=== PATIENT | female | born 1980 | race Caucasian/White ===

== ENCOUNTER 2017-11-09 11:29 | Outpatient (CLI) | payer MEDICAID | END 2017-11-09 13:45 | disposition home or self-care (01) | LOC: OBT 11:29 → L-D 11:29 → OBT 13:45 | DX: O46.8X3 Other antepartum hemorrhage, third trimester (principal); Z3A.38 38 weeks gestation of pregnancy | CPT/HCPCS: 76818 ==

== ENCOUNTER 2017-11-11 04:22 | Inpatient (IN) | payer MEDICAID ==
[2017-11-11] MEDS ORDERED: OXYTOCIN 30 UNITS/LR 500 ML IV (11:30)
[2017-11-11] MEDS ORDERED: CARBOPROST 250 MCG INJ IM (11:30)
[2017-11-11] MEDS: LACTATED RINGER'S 1,000 ML IV ×3 (11:47→21:06)
[2017-11-11 12:08] LABS: ADD MAN DIFF? NO
[2017-11-11 12:11] LABS: WHITE BLOOD COUNT 10.8 10^3/ul (4.8-10.8)
[2017-11-11 12:11] LABS: BASOPHILS % 0.3 % (0.0-2.0); EOSINOPHILS # 0.2 10^3/ul (0.0-0.5); EOSINOPHILS % 1.9 % (0.0-7.0); HEMATOCRIT 32.1 % (37.0-47.0); HEMOGLOBIN 10.7 g/dl (12.0-16.0); LYMPHOCYTES # 1.6 10^3/ul (0.8-2.9); LYMPHOCYTES % 14.4 % (15.0-51.0); MEAN CORPUSCULAR HEMOGLOBIN 33.1 pg (29.0-33.0); MEAN CORPUSCULAR HGB CONC 33.3 g/dl (32.0-37.0); MEAN CORPUSCULAR VOLUME 99.4 fl (82.0-101.0); MEAN PLATELET VOLUME 11.5 fl (7.4-10.4); MONOCYTE # 0.5 10^3/ul (0.3-0.9); NEUTROPHIL # 8.3 10^3/ul (1.6-7.5); PLATELET COUNT 217 10^3/UL (140-415); RED BLOOD COUNT 3.23 10^6/ul (4.20-5.40); RED CELL DISTRIBUTION WIDTH 13.9 % (11.5-14.5)
[2017-11-11 12:33] LABS: INR 0.89; PARTIAL THROMBOPLASTIN TIME 26.3 Sec (25.0-35.0); PROTIME 12.1 Sec (11.9-14.9); PT RATIO 0.9
[2017-11-11 12:58] LABS: HEPATITIS B SURFACE ANTIGEN NEGATIVE (NEGATIVE)
[2017-11-11 15:05] LABS: RAPID PLASMA REAGIN NONREACTIVE (NR)
[2017-11-11] MEDS: MISOPROSTOL 25 MCG CAPSULE PO ×3 (15:29→21:00)
[2017-11-11] MEDS: BUTORPHANOL 2 MG INJ IV (18:05)
[2017-11-11] MEDS: MINERAL OIL LIGHT 10 ML VIAL TOP (21:00)
[2017-11-11] MEDS ORDERED: ONDANSETRON 4 MG INJ IV (21:30)
[2017-11-11] MEDS ORDERED: EPHEDrine SULFATE 50 MG/5 ML SYG IV (21:30)
[2017-11-11] MEDS ORDERED: NALOXONE (0.4 MG/ML) INJ IV (21:30)
[2017-11-11] MEDS ORDERED: DIPHENHYDRAMINE 50 MG INJ IV (21:30)
[2017-11-11] MEDS: OXYTOCIN 30 UNITS/LR 500 ML IV (22:41)
[2017-11-12] MEDS: MISOPROSTOL 25 MCG CAPSULE PO ×6 (01:00→21:00)
[2017-11-12] MEDS: LACTATED RINGER'S 1,000 ML IV ×2 (06:08→15:30)
[2017-11-12] MEDS: FENTAnyl 2MCG/ML-ROPIV 0.2% 100 ML BAG EPI (10:32)
[2017-11-12] MEDS: MINERAL OIL LIGHT 10 ML VIAL TOP (20:01)
[2017-11-12] MEDS: MISOPROSTOL 200 MCG TAB PR (20:41)
[2017-11-12] MEDS: METHYLERGONOVINE 0.2 MG INJ IM (20:46)
[2017-11-12] MEDS: OXYTOCIN 30 UNITS/LR 500 ML IV ×2 (20:48→20:49)
[2017-11-12] MEDS ORDERED: IBUPROFEN 600 MG TAB PO (21:30)
[2017-11-12] MEDS: LIDOCAINE 1% (MPF) 30 ML INJ INJ (21:31)
[2017-11-12] MEDS: DEXTROSE 5%-LR 1,000 ML IV (21:43)
[2017-11-12] MEDS: HYDROCODONE/APAP (5/325) TAB PO (21:57)
[2017-11-12] MEDS ORDERED: DIPHENHYDRAMINE 50 MG INJ IV (22:00)
[2017-11-12] MEDS ORDERED: ONDANSETRON 4 MG INJ IV (22:00)
[2017-11-12] MEDS ORDERED: METHYLERGONOVINE 0.2 MG INJ IM (22:00)
[2017-11-12] MEDS ORDERED: OXYTOCIN 30 UNITS/LR 500 ML IV (22:00)
[2017-11-12] MEDS ORDERED: ZOLPIDEM 5 MG TAB PO (22:00)
[2017-11-12] MEDS ORDERED: CARBOPROST 250 MCG INJ IM (22:00)
[2017-11-12] MEDS ORDERED: MISOPROSTOL 200 MCG TAB PR (22:00)
[2017-11-12] MEDS: SENNA/DOCUSATE NA (8.6MG/50MG) TAB PO (23:07)
[2017-11-12] MEDS: DIBUCAINE 1% 30 GM OINT PR (23:08)
[2017-11-12] MEDS: WITCH HAZEL/GLYCERIN PAD PR (23:08)
[2017-11-12] MEDS: DOCUSATE SODIUM 100 MG CAP PO (23:08)
[2017-11-12] MEDS: BENZOCAINE 20% 56 ML SPRAY TOP (23:08)
[2017-11-12] MEDS: LANOLIN 7 GM TUBE TOP (23:08)
[2017-11-13] MEDS: IBUPROFEN 600 MG TAB PO ×5 (00:06→23:40)
[2017-11-13] MEDS: ACETAMINOPHEN 325 MG TAB PO (00:41)
[2017-11-13] MEDS: LACTATED RINGER'S 1,000 ML IV* ×2 (01:58→05:43)
[2017-11-13] MEDS: DEXTROSE 5%-LR 1,000 ML IV (05:43)
[2017-11-13 09:28] LABS: ADD MAN DIFF? NO
[2017-11-13 09:32] LABS: BASOPHILS % 0.2 % (0.0-2.0); EOSINOPHILS # 0.3 10^3/ul (0.0-0.5); EOSINOPHILS % 1.4 % (0.0-7.0); HEMATOCRIT 30.5 % (37.0-47.0); HEMOGLOBIN 10.2 g/dl (12.0-16.0); LYMPHOCYTES # 2.4 10^3/ul (0.8-2.9); LYMPHOCYTES % 13.4 % (15.0-51.0); MEAN CORPUSCULAR HEMOGLOBIN 32.8 pg (29.0-33.0); MEAN CORPUSCULAR HGB CONC 33.4 g/dl (32.0-37.0); MEAN CORPUSCULAR VOLUME 98.1 fl (82.0-101.0); MEAN PLATELET VOLUME 11.1 fl (7.4-10.4); MONOCYTE # 0.8 10^3/ul (0.3-0.9); MONOCYTES % 4.5 % (0.0-11.0); NEUTROPHIL # 13.9 10^3/ul (1.6-7.5); NEUTROPHILS % 79.3 % (39.0-77.0); PLATELET COUNT 230 10^3/UL (140-415); RED BLOOD COUNT 3.11 10^6/ul (4.20-5.40)
[2017-11-13 09:32] LABS: WHITE BLOOD COUNT 17.5 10^3/ul (4.8-10.8)
[2017-11-13] MEDS: SENNA/DOCUSATE NA (8.6MG/50MG) TAB PO (20:39)
[2017-11-13] MEDS: MAGNESIUM HYDROXIDE 30ML CUP PO (20:39)
[2017-11-14] MEDS: IBUPROFEN 600 MG TAB PO ×2 (05:33→12:06)
[2017-11-14] MEDS: MEASLES,MUMPS,RUBELLA VACCINE INJ SC* (09:00)
[2017-11-14 11:11] LABS: ADD MAN DIFF? NO
[2017-11-14 11:18] LABS: BASOPHILS % 0.3 % (0.0-2.0); EOSINOPHILS # 0.5 10^3/ul (0.0-0.5); EOSINOPHILS % 3.9 % (0.0-7.0); HEMATOCRIT 29.2 % (37.0-47.0); HEMOGLOBIN 9.6 g/dl (12.0-16.0); LYMPHOCYTES # 1.5 10^3/ul (0.8-2.9); LYMPHOCYTES % 12.4 % (15.0-51.0); MEAN CORPUSCULAR HEMOGLOBIN 33.4 pg (29.0-33.0); MEAN CORPUSCULAR HGB CONC 32.9 g/dl (32.0-37.0); MEAN CORPUSCULAR VOLUME 101.7 fl (82.0-101.0); MEAN PLATELET VOLUME 11.5 fl (7.4-10.4); MONOCYTE # 0.5 10^3/ul (0.3-0.9); NEUTROPHIL # 9.2 10^3/ul (1.6-7.5); NEUTROPHILS % 78.1 % (39.0-77.0); PLATELET COUNT 258 10^3/UL (140-415); RED BLOOD COUNT 2.87 10^6/ul (4.20-5.40); RED CELL DISTRIBUTION WIDTH 13.8 % (11.5-14.5)
[2017-11-14 11:18] LABS: WHITE BLOOD COUNT 11.8 10^3/ul (4.8-10.8)
[2017-11-14 11:57] LABS: RUBELLA ANTIBODY - IGM <20.00 AU/mL
[2017-11-14] MEDS: SENNA/DOCUSATE NA (8.6MG/50MG) TAB PO (12:06)
[2017-11-14] MEDS: DIPHTH/TET/ACEL PERTUSS (ADULT) 0.5 ML VIAL IM* (14:05)
[2017-11-14] MEDS: OXYCODONE/ASPIRIN (4.88/325) TAB PO (14:13)
== END 2017-11-14 16:10 | disposition home or self-care (01) | DRG 775 ==
LOC: OBT 04:22 → PP1 11-12 22:32 → L-D 04:24 → OBT 10:59 → L-D 10:45
PROVIDERS: Obstetrics & Gynecology
PROC: 10E0XZZ Delivery of Products of Conception, External Approach (ICD-10-PCS; principal; 2017-11-11)
PROC: 0W8NXZZ Division of Female Perineum, External Approach (ICD-10-PCS; 2017-11-11)
PROC: 3E033VJ Introduction of Other Hormone into Peripheral Vein, Percutaneous Approach (ICD-10-PCS; 2017-11-11)
DX: O69.89X0 Labor and delivery complicated by other cord complications, not applicable or unspecified (principal); Z3A.39 39 weeks gestation of pregnancy; Z37.0 Single live birth
CPT/HCPCS: 62319; 85025; 85610; 85730; 86592; 86762; 86850; 86900; 86901; 87340; 90715; 99464